=== PATIENT | female | born 1975 | race Caucasian/White ===

== ENCOUNTER 2021-04-02 11:07 | Emergency (ER) | payer OTHER ==
--- NOTE | 2021-04-02 11:26 | EDM.PDOC ---
ED HPI GENERAL MEDICAL PROBLEM - General Chief Complaint: Respiratory Problem Stated Complaint: BREATHING TX Time Seen by Provider: 04/02/21 11:16 - Related Data Allergies Allergy/AdvReac Type Severity Reaction Status Date / Time No Known Allergies Allergy Verified 04/02/21 11:17 Home Meds: Home Meds Citalopram [Celexa] 20 mg PO DAILY 10/19/17 [History] Past Medical History Psychiatric History: Reports: PTSD Social & Family History - Caffeine Use Caffeine Use: Reports: Coffee, Soda Course - Vital Signs Last Recorded V/S: Last Vital Signs Temp 97.0 F 04/02/21 11:17 Pulse 59 L 04/02/21 11:17 Resp 17 04/02/21 11:17 BP 133/74 04/02/21 11:17 Pulse Ox 93 L 04/02/21 11:17 Departure - Discharge Information Referrals: Anival Taylor NP [Primary Care Provider] - Sepsis Event Note (ED) - Evaluation Sepsis Screening Result: No Definite Risk - Focused Exam Vital Signs: Vital Signs Temp Pulse Resp BP Pulse Ox 04/02/21 11:17 97.0 F 59 L 17 133/74 93 L
[2021-04-02] MEDS ORDERED: predniSONE 20 MG Tab PO ONE (11:41)
[2021-04-02] MEDS ORDERED: Albuterol/Ipratropium 3.0-0.5 MG/3 ML Neb Soln NEB ONE ×2 (11:42→12:35)
--- NOTE | 2021-04-02 12:34 | CR ---
INDICATION: Expiratory wheezes TECHNIQUE: Chest 1 view. COMPARISON: 12/19/16 FINDINGS: Cardiovascular and mediastinum: Heart size and vasculature are normal in caliber and appearance. Mediastinum is within normal limits. Lungs and pleural space: Lungs are clear. No sign of infiltrate or mass. No sign of pleural effusion. No pneumothorax. Bones and soft tissues: No significant findings. IMPRESSION: Unremarkable chest. Dictated by: Robert Owens MD @ 04/02/2021 12:33:30 (Electronically Signed)
--- NOTE | 2021-04-02 13:17 | EDM.PDOC ---
ED HPI GENERAL MEDICAL PROBLEM - General Chief Complaint: Respiratory Problem Stated Complaint: BREATHING TX Time Seen by Provider: 04/02/21 11:16 - History of Present Illness INITIAL COMMENTS - FREE TEXT/NARRATIVE: CHIEF COMPLAINT(S): Asthma exacerbation HISTORY OF PRESENT ILLNESS: This is a 45-year-old woman with a past medical history of asthma who comes to the emergency department with a chief complaint of asthma exacerbation. The patient states that she has been experiencing shortness of breath with wheezing. She states that she has been using her albuterol inhaler. She denies any fevers or chills. She denies any chest pain, abdominal pain, nausea or vomiting. She states that she normally gets this way around this time of the year. She states that she is having some nasal congestion and some burning and watery eyes. She denies any earache. REVIEW OF SYSTEMS: Constitutional: Denies fever, chills. Eyes: Denies eye pain Ears, Nose, Mouth, & Throat: Positive for rhinitis and itchy eyes. Denies earac he Cardiovascular: Denies chest pain Respiratory: Positive for shortness of breath and wheezing Gastrointestinal: Denies Nausea, vomiting, diarrhea, hematochezia. Genitourinary: Denies hematuria Skin:Denies a rash MSK: Denies joint pain Neurological: Denies blurred vision Psychiatric: Denies depression PAST MEDICAL HISTORY: As per history of present illness and as reviewed below otherwise noncontributory. SURGICAL HISTORY: As per history of present illness and as reviewed below otherwise noncontributory. SOCIAL HISTORY: As per history of present illness and as reviewed below otherwise noncontributory. FAMILY HISTORY: As per history of present illness and as reviewed below otherwise noncontributory. EXAMINATION OF ORGAN SYSTEMS/BODY AREAS: Constitutional: Blood pressure is 133/74, heart rate 59, respiratory rate 17 with an oxygen saturation 93% on room air. Temperature 36.1 General: 1 young woman who does not appear to be in acute distress Psychiatric: Appropriate mood and affect. Eyes: No scleral icterus or mild conjunctivitis. Clear nasal drainage. ENMT: Moist mucous membranes. No pharyngeal erythema Cardiovascular: Bradycardic but regular no gallops, murmurs, or rubs. Bilateral upper extremity pulses symmetric and intact. No peripheral edema. No JVD. Respiratory: The patient is speaking in full sentences and does not appear to be short of breath but the patient does have significant bilateral inspiratory and expiratory wheezing. Gastrointestinal: Soft, non-tender, non-distended. Normoactive bowel sounds Genitourinary: No suprapubic tenderness Musculoskeletal: Normal range of motion. Skin: No lesions or abrasions. Neurological: Alert, GCS 15 MEDICAL DECISION MAKING AND COURSE IN THE ED WITH INTERPRETATION/REVIEW OF DIAGNOSTIC STUDIES: This is a 45-year-old woman with a past medical history of asthma who comes to the emergency department with acute asthma exacerbation who is borderline hypoxic with significant wheezing bilaterally however does not appear to be in significant distress. We will provide the patient with a DuoNeb treatment and prednisone by mouth. We will obtain a chest x-ray. We will reevaluate after this. I do not believe any further imaging or labs are indicated. EKG was obtained for the bradycardia which was found to be normal sinus bradycardia. The radiological images were viewed by myself along with reading the report from the radiologist. Chest x-ray does not reveal any acute cardiopulmonary process. On reevaluation, the patient continued to remain comfortable. However on lung examination she still had some wheezing. Therefore we provided the patient an additional DuoNeb treatment. On reevaluation the patient's wheezing had significantly improved. I did discuss her at this time that I would be sending her home with prednisone 50 mg daily and that she should use Flonase twice a day and I will also refill her albuterol inhaler. She is to follow-up with her primary care physician for further monitoring. She is to return for any new or worsening symptoms. She was amenable to discharge at this time and had no further questions DISPOSITION: The patient was discharged home in stable condition. The patient will follow up with primary care physician in 1 to 3 days CONDITION: Fair PROCEDURES: None FINAL IMPRESSION(S)/DIAGNOSES: 1. Acute asthma exacerbation Valdo King M.D. - Related Data Allergies Allergy/AdvReac Type Severity Reaction Status Date / Time No Known Allergies Allergy Verified 04/02/21 11:17 Home Meds: Home Meds Citalopram [Celexa] 20 mg PO DAILY 10/19/17 [History] Albuterol Sulfate [Albuterol Sulfate HFA] 8.5 gm INH Q4H PRN #1 inhaler 04/02/21 [Rx] Fluticasone Propionate [Flonase] 16 gm .XX BID #1 bottle 04/02/21 [Rx] predniSONE [Prednisone] 50 mg PO DAILY #5 tablet 04/02/21 [Rx] Past Medical History HEENT History: Reports: None Cardiovascular History: Reports: None Respiratory History: Reports: Asthma Gastrointestinal History: Reports: None Genitourinary History: Reports: None GLOBAL ACCOUNT EXECUTIVE History: Reports: None Musculoskeletal History: Reports: None Neurological History: Reports: None Psychiatric History: Reports: PTSD Endocrine/Metabolic History: Reports: None Hematologic History: Reports: None Immunologic History: Reports: None Oncologic (Cancer) History: Reports: Cervix Dermatologic History: Reports: None - Infectious Disease History Infectious Disease History: Reports: Chicken Pox - Past Surgical History Head Surgeries/Procedures: Reports: None HEENT Surgical History: Reports: Oral Surgery, Tonsillectomy Cardiovascular Surgical History: Reports: None Respiratory Surgical History: Reports: None GI Surgical History: Reports: None Female Surgical History: Reports: Cervical Cryotherapy Endocrine Surgical History: Reports: None Neurological Surgical History: Reports: None Musculoskeletal Surgical History: Reports: None Oncologic Surgical History: Reports: None Dermatological Surgical History: Reports: None Social & Family History - Family History Family Medical History: No Pertinent Family History - Tobacco Use Tobacco Use Status *Q: Never Tobacco User Second Hand Smoke Exposure: No - Caffeine Use Caffeine Use: Reports: Energy Drinks - Recreational Drug Use Recreational Drug Use: No ED ROS GENERAL - Review of Systems Review Of Systems: See Below ED EXAM, GENERAL - Physical Exam Exam: See Below Course - Vital Signs Last Recorded V/S: Last Vital Signs Temp 36.1 C 04/02/21 11:17 Pulse 59 L 04/02/21 11:17 Resp 17 04/02/21 11:17 BP 133/74 04/02/21 11:17 Pulse Ox 93 L 04/02/21 11:17 - Orders/Labs/Meds Meds: Medications Discontinued Medications Generic Name Dose Route Start Last Admin Trade Name Freq PRN Reason Stop Dose Admin Albuterol/Ipratropium 3 ml 04/02/21 11:42 04/02/21 11:48 Albuterol/Ipratropium 3.0-0.5 Mg/3 Ml Neb Soln NEB 04/02/21 11:43 3 ml ONETIME ONE Administration Albuterol/Ipratropium 3 ml 04/02/21 12:35 04/02/21 12:49 Albuterol/Ipratropium 3.0-0.5 Mg/3 Ml Neb Soln NEB 04/02/21 12:36 3 ml ONETIME ONE Administration Prednisone 60 mg 04/02/21 11:41 04/02/21 11:48 Prednisone 20 Mg Tab PO 04/02/21 11:42 60 mg ONETIME ONE Administration Departure - Departure Time of Disposition: 13:17 Disposition: Home, Self-Care 01 Condition: Fair Clinical Impression: Bronchitis - Discharge Information *PRESCRIPTION DRUG MONITORING PROGRAM REVIEWED*: No *COPY OF PRESCRIPTION DRUG MONITORING REPORT IN PATIENT ADAM: No Prescriptions: Albuterol Sulfate [Albuterol Sulfate HFA] 8.5 gm INH Q4H PRN #1 inhaler PRN Reason: Wheezing Fluticasone Propionate [Flonase] 16 gm .XX BID #1 bottle predniSONE [Prednisone] 50 mg PO DAILY #5 tablet Instructions: Acute Bronchitis, Adult Referrals: Anival Taylor PSYCHOSOCIAL REHABILITATION COUNSELOR [Primary Care Provider] - Forms: ED Department Discharge Additional Instructions: You were evaluated today on an emergent basis. At this time I do believe you are experiencing bronchitis. I do suspect that there is an underlying lung diagnosis such as asthma that has gone undiagnosed given your medications at home. I do recommend that you follow-up with your primary care physician and get a referral for pulmonology. I did send a prescription for albuterol which can be used every 4 hours as needed for wheezing. I also send your prescription for Flonase which you use twice a day. Please take prednisone 50 mg daily starting tomorrow. I do suspect that there is an allergic component to this. If you have any worsening shortness of breath please return to the emergency department. [facility] - Primary [facility] [address] [place] [id number] [id number] The patient is informed of any results of their evaluation and diagnostic workup and all questions are answered. They are given discharge instructions and return precautions. The patient is stable for discharge. The patient states they understand and agree with the plan and that they will return if their symptoms get worse or if they have any new concerns. The following information is given to patients seen in the emergency department who are being discharged to home. This information is to outline your options for follow-up care. We provide all patients seen in our emergency department with a follow-up referral. The need for follow-up, as well as the timing and circumstances, are variable depending upon the specifics of your emergency department visit. If you don't have a primary care physician on staff, we will provide you with a referral. We always advise you to contact your personal physician following an emergency department visit to inform them of the circumstance of the visit and for follow-up with them and/or the need for any referrals to a consulting specialist. The emergency department will also refer you to a specialist when appropriate. This referral assures that you have the opportunity for follow-up care with a specialist. All of these measure are taken in an effort to provide you with optimal care, which includes your follow-up. Under all circumstances we always encourage you to contact your private physician who remains a resource for coordinating your care. When calling for follow-up care, please make the office aware that this follow-up is from your recent emergency room visit. If for any reason you are refused follow-up, please contact the [facility] Emergency Department at and asked to speak to the emergency department charge nurse. Sepsis Event Note (ED) - Evaluation Sepsis Screening Result: No Definite Risk
--- NOTE | 2021-04-03 18:41 | PCM.EKG ---
#1 Interpretation EKG Date: 04/02/21 Time: 11:46 Rhythm: NSR Rate (Beats/Min): 47 Onset: Normal P-Wave: Present QRS: Normal ST-T: Normal QT: Normal Comparison: NA - No Prior EKG (SinuS Bradycardia)
== END 2021-04-02 13:22 | disposition home or self-care (01) ==
LOC: MW.ED 11:07
DX: J45.901 Unspecified asthma with (acute) exacerbation (principal); Z79.899 Other long term (current) drug therapy
CPT/HCPCS: 71045; 93005; 94640; 99285; A9270; 99283; J7620-GY